=== PATIENT | female | born 1980 | race Caucasian/White ===

== ENCOUNTER 2024-03-27 08:22 | Day surgery (SDC) | payer OTHER, SELFPAY ==
[2024-03-23 15:27] VITALS: BMI 35.7
[2024-03-27 08:27] VITALS: BP 136/85; PULSE 66; RESP 20; TEMP 36.2; O2SAT 97; BMI 36.3
[2024-03-27] MEDS: Lactated Ringers 1,000 ML 50 ML IVCONT (08:52)
--- NOTE | 2024-03-27 09:15 | HO.ANESPROP2 ---
[facility] Past Medical History Medical History (Updated 03/23/24 @ 15:26 by Debby Ramey RN) BARRIE (obstructive sleep apnea) PCOS (polycystic ovarian syndrome) Hypothyroidism GERD (gastroesophageal reflux disease) Hemorrhoids Rectal arterial hemorrhage Family History Family history of problems with anesthesia: No Surgical History Surgical History (Updated 03/23/24 @ 15:26 by Debby Ramey RN) History of bunionectomy History of hysterectomy (~07/2023) History of esophagogastroduodenoscopy (EGD) Hx of colonoscopy History of Problems with Anesthesia: No Social History Social History Patient Tobacco Use Status: Never used Tobacco Are you DNR?: No Advance Directives: No Advance Directives Information Provided: Yes Patient : No Meds Allergies Allergy/AdvReac Type Severity Reaction Status Date / Time No Known Allergies Allergy Verified 03/23/24 15:27 Active Medications: Current Medications Lactated Ringer's (Lr) 1,000 mls @ 50 mls/hr IVCONT .Q20H ALEXANDREA Last Admin: 03/27/24 08:52 Dose: 50 mls/hr Home Medications ?Medication ?Instructions ?Recorded ?Confirmed ?Last Taken ?Type levothyroxine 75 mcg tablet 75 mcg PO DAILY 03/23/24 03/23/24 Unknown History Exam Height,Weight and Vital Signs: Height 5 ft 3 in Weight 93 kg Last Vital Signs Temp 97.1 F 03/27/24 08:27 Pulse 66 03/27/24 08:27 Resp 20 03/27/24 08:27 BP 136/85 03/27/24 08:27 Pulse Ox 97 03/27/24 08:27 O2 Del Method Room Air 03/27/24 08:27 Airway Mallampati Class: II TM Dist: >3cm Neck ROM: Full Assessment and Plan Assessment Anesthesia Assessment: Anesthesia Plan Discussed and Chart Reviewed Final Anesthetic Review Family History of Problems with Anesthesia: No History of Problems with Anesthesia: No NPO: Yes ASA Class: II Final Preanesthetic Review: No Changes in Pt Med Stat, Meds/Allgs Chart Reviewed, Consent Obtained/Reviewed and Anes Risks/Benef Reviewed Patient Risk: Low Procedure Risk: Low Anesthetic Plan Anesthetic Plan: TIVA Disposition: Standard PACU
--- NOTE | 2024-03-27 09:37 | MHC.SHP ---
Pre-Procedural Eval Section A - 24 Hr Update-Section A only Date of Service: 03/27/24 The patient is an INPATIENT: No Changes since office visit: No Cold of Flu in the past 2 weeks, No New Medical Problems, No Changes in Medication and No Patient answered all questions The patient has been examined within 24 hours of the surgical procedure. The History & Physical has been completed within 30 days and I have reviewed it.: Yes Section B - Complete if H&P > 30 days Chief Complaint: Hemorrhage of anus and rectum Allergies: Allergies Allergy/AdvReac Type Severity Reaction Status Date / Time No Known Allergies Allergy Verified 03/23/24 15:27 Plan I have reviewed the history and physical and performed a pertinent physical examination on my patient. No changes have occurred unless specified. Time Spent With Patient Time: Total time managing care of this patient today ____ minutes.
[2024-03-27 10:12] VITALS: BP 96/72; PULSE 73; RESP 16; TEMP 36.4; O2SAT 99
[2024-03-27 10:27] VITALS: BP 122/93; PULSE 77; RESP 16; TEMP 36.4; O2SAT 99
--- NOTE | 2024-03-27 10:43 | OP_ITS ---
DATE OF SERVICE: 03/27/2024 SURGEON: Yong Camarillo MD INDICATIONS: Rectal bleeding. PREOPERATIVE DIAGNOSIS: POSTOPERATIVE DIAGNOSIS: PROCEDURE PERFORMED: Colonoscopy to the terminal ileum with biopsy. ESTIMATED BLOOD LOSS: COMPLICATIONS: ANESTHESIA: Monitored anesthesia care. ASSISTANTS: SPECIMENS: DESCRIPTION OF PROCEDURE: A history and physical was performed. The risks and benefits of the procedure were explained to the patient and informed consent was obtained. The patient was placed in the left lateral decubitus position. A digital rectal exam was performed and showed some external skin tags. The Olympus pediatric video colonoscope was introduced into the rectum and advanced to the cecum. The cecum was identified by transillumination, palpation, and identification of ileocecal valve. Examination was performed and the scope was removed. She tolerated the procedure well and was taken to recovery area in stable condition. FINDINGS: The terminal ileum was examined and appeared normal. The visualized colonic mucosa was normal. The quality of the prep was good. No polyps were identified. Random sigmoid biopsies were obtained. Retroflexed examination showed some hypertrophic anal papillae and small to moderate-sized internal hemorrhoids. IMPRESSION: Normal colonoscopy. RECOMMENDATIONS: 1. Follow up the biopsy results. 2. Repeat colonoscopy for screening purposes recommended in 10 years for average-risk individuals. MD NAGI Nelson/PAULETTEL / [id number]
== END 2024-03-27 11:13 | disposition home or self-care (01) ==
PROVIDERS: PCP Internal Medicine; Visit Provider Internal Medicine Gastroenterology
PROC: 0DJD8ZZ Inspection of Lower Intestinal Tract, Via Natural or Artificial Opening Endoscopic (ICD-10-PCS; CPT 45378; principal; 2024-03-27 10:00)
DX: K62.5 Hemorrhage of anus and rectum (principal); K64.8 Other hemorrhoids; K64.4 Residual hemorrhoidal skin tags; G47.33 Obstructive sleep apnea (adult) (pediatric)
CPT/HCPCS: 45380; 88305; J2704